=== PATIENT | male | born 1990 ===

== ENCOUNTER 2018-08-23 18:20 | Emergency (ER) | payer SELFPAY ==
[~2018-08-23] VITALS: Ht 175.3 cm; Wt 56.8 kg
[2018-08-23 18:35] VITALS: Ht 175.3 cm; Wt 56.8 kg
[2018-08-23] MEDS ORDERED: GABAPENTIN100 MG PO (21:19)
[2018-08-23 21:24] VITALS: BP 128/73
== END 2018-08-23 21:25 | disposition home or self-care (01) ==
LOC: D.ER 18:20
DX: M67.441 Ganglion, right hand (principal)